=== PATIENT | male | born 1980 | race Caucasian/White ===

== ENCOUNTER → 2017-05-02 | Outpatient (CLI) | payer SELFPAY ==
[~2017-05-02] MED LIST: DARVOCET N 1001 TAB PO; HYDROCODONE BIT1 T11 PO; NEURONTIN300 MG PO; OXYCODONE HCL5 MG PO; PREVACID15 M1 PO; SERTRALINE HYDR25 MG PO; ZOFRAN4 MG PO; ZOLPIDEM TART5 MG PO
== END | disposition home or self-care (01) ==
LOC: ORTHO 00:42
DX: M25.531 Pain in right wrist (principal)

== ENCOUNTER 2017-08-14 13:22 | Emergency (ER) | payer OTHER ==
[~2017-08-14] VITALS: Ht 182.8 cm; Wt 81.6 kg
== END 2017-08-14 15:32 | disposition home or self-care (01) ==
LOC: ED 13:22
DX: J06.9 Acute upper respiratory infection, unspecified (principal); Z79.899 Other long term (current) drug therapy

== ENCOUNTER → 2017-11-12 | Outpatient (CLI) | payer OTHER | END | disposition home or self-care (01) | LOC: RAD 13:56 | DX: M51.26 Other intervertebral disc displacement, lumbar region (principal) ==

== ENCOUNTER → 2017-11-26 | Outpatient (CLI) | payer OTHER | END | disposition home or self-care (01) | LOC: MRI 14:00 | DX: M51.26 Other intervertebral disc displacement, lumbar region (principal) ==

== ENCOUNTER 2018-04-28 10:02 | Emergency (ER) | payer OTHER ==
[~2018-04-28] VITALS: Ht 180.3 cm; Wt 79.4 kg
[~2018-04-28 10:02] MED LIST changes: -OXYCODONE HCL5 MG PO; +PERCOCET 10-321 EACH PO
[2018-04-28 10:50] LABS: BASO # 0.1 10*3/uL (0.0-0.1); BASO % 0.3 % (0.0-1.0); EOS # 0.1 10*3/uL (0.0-0.4); EOS % 0.9 % (1.0-4.0); HEMATOCRIT 33.8 % (42.0-52.0); HEMOGLOBIN 11.5 g/dl (14.0-18.0); LYMPH # 1.8 10*3/uL (1.3-4.4); LYMPH % 11.5 % (27.0-41.0); MEAN CELL VOLUME 88.5 fl (80.0-94.0); MEAN CORPUSCULAR HGB 30.1 pg (27.0-31.0); MONO # 1.3 10*3/uL (0.1-1.0); MONO % 8.8 % (3.0-9.0); NEUT # 11.9 10*3/uL (2.3-7.9); NEUT % 77.9 % (47.0-73.0); PLATELET COUNT AUTOMATED 245 10*3/uL (130-400); RED BLOOD COUNT 3.82 10*6/uL (4.50-5.90); RED CELL DISTRI WIDTH 11.9 % (0-14.5); WHITE BLOOD COUNT 15.3 10*3/uL (4.8-10.8)
[2018-04-28 11:06] LABS: ALBUMIN 3.4 gm/dl (3.1-4.5); ALKALINE PHOSPHATASE 56 U/L (45-117); BUN 12 mg/dl (7-24); CHLORIDE 105 mmol/L (98-107); CREATININE 0.76 mg/dL (0.70-1.30); POTASSIUM 3.6 mmol/L (3.5-5.1); SGOT/AST 38 IU/L (3-35); SGPT/ALT 82 U/L (12-78); SODIUM 140 mmol/L (136-145)
[2018-04-28] MEDS ORDERED: LEVOFLOXACIN500 MG PO (12:04)
== END 2018-04-28 13:21 | disposition home or self-care (01) ==
LOC: ED 10:02
PROVIDERS: Nurse Practitioner Family
DX: J18.9 Pneumonia, unspecified organism (principal); Z79.899 Other long term (current) drug therapy

== ENCOUNTER 2018-04-30 18:23 | Inpatient (IN) | payer OTHER ==
[~2018-04-30] VITALS: Ht 180.3 cm; Wt 80.9 kg
--- NOTE | ~2018-04-30 | EKG ---
[place], [place] ELECTROCARDIOGRAM REPORT NAME: ANAM CHIN UNIT #: [id number] ROOM: 428 DOCTOR: CONNOR DRAFT REPORT BIRTHDATE: [birth year] [facility] Test Date: 2018-04-30 Test Time: 18:51:32 Pat Name: ANAM CHIN Department: Room: [facility] Gender: M Senior Application Programmer: DOTTIE : 1980 Requested By: DRU PERSON Order Number: [id number] Reading MD: Bienvenido Parra MD Measurements Intervals [place] Rate: 109 P: 45 CA: 136 QRS: 10 QRSD: 97 T: 29 QT: 331 QTc: 446 Interpretive Statements Sinus tachycardia Abnormal R-wave progression, early transition Electronically Signed On 05-01-2018 10:42:00 PDT by Bienvenido Parra MD CM:EKGRPT:ELECTROCARDIOGRAM REPORT [id number] DRU PERSON EPIPHANY DRAFT REPORT DRU PERSON
[~2018-04-30 18:23] MED LIST changes: +LEVOFLOXACIN500 MG PO
[2018-04-30 18:24] VITALS: BP 133/90
[2018-04-30 19:02] LABS: BASO % 0.2 % (0.0-1.0); EOS # 0.4 10*3/uL (0.0-0.4); EOS % 2.8 % (1.0-4.0); HEMOGLOBIN 10.4 g/dl (14.0-18.0); LYMPH # 1.3 10*3/uL (1.3-4.4); LYMPH % 9.7 % (27.0-41.0); MEAN CELL VOLUME 89.1 fl (80.0-94.0); MEAN CORPUSCULAR HGB 29.9 pg (27.0-31.0); MEAN CORPUSCULAR HGB CONC 33.5 g/dl (33.0-37.0); MEAN PLATELET VOLUME 9.2 fl (9.6-12.3); MONO # 1.5 10*3/uL (0.1-1.0); MONO % 10.9 % (3.0-9.0); NEUT # 10.1 10*3/uL (2.3-7.9); NEUT % 75.9 % (47.0-73.0); PLATELET COUNT AUTOMATED 282 10*3/uL (130-400); RED BLOOD COUNT 3.48 10*6/uL (4.50-5.90); RED CELL DISTRI WIDTH 11.9 % (0-14.5); WHITE BLOOD COUNT 13.3 10*3/uL (4.8-10.8)
[2018-04-30 19:18] LABS: ALBUMIN 3.2 gm/dl (3.1-4.5); ALKALINE PHOSPHATASE 64 U/L (45-117); BUN 11 mg/dl (7-24); CHLORIDE 103 mmol/L (98-107); CREATININE 0.76 mg/dL (0.70-1.30); POTASSIUM 3.8 mmol/L (3.5-5.1); SGOT/AST 27 IU/L (3-35); SODIUM 140 mmol/L (136-145); TOTAL PROTEIN 7.4 gm/dL (6.4-8.2)
[2018-04-30 19:22] LABS: SGPT/ALT 55 U/L (12-78)
[2018-04-30 19:24] LABS: TROPONIN I < 0.015 ng/ml (<0.045)
[2018-04-30 21:30] VITALS: BP 124/79
[2018-04-30 21:36] VITALS: BP 124/78
[2018-04-30] MEDS ORDERED: ATARAX,VISTARIL10 MG PO (21:46)
[2018-04-30] MEDS ORDERED: VISTARIL25 MG PO (21:49)
[2018-05-01] VITALS: BP 118/83
[2018-05-01 07:58] LABS: HEMATOCRIT 31.1 % (42.0-52.0); HEMOGLOBIN 10.1 g/dl (14.0-18.0); MEAN CORPUSCULAR HGB CONC 32.5 g/dl (33.0-37.0); MEAN PLATELET VOLUME 9.6 fl (9.6-12.3); PLATELET COUNT AUTOMATED 295 10*3/uL (130-400); RED BLOOD COUNT 3.37 10*6/uL (4.50-5.90); RED CELL DISTRI WIDTH 11.9 % (0-14.5); WHITE BLOOD COUNT 11.9 10*3/uL (4.8-10.8)
[2018-05-01 08:00] VITALS: BP 126/73
[2018-05-01 08:01] LABS: MEAN CELL VOLUME 92.3 fl (80.0-94.0)
[2018-05-01 08:02] LABS: BUN 10 mg/dl (7-24); CHLORIDE 106 mmol/L (98-107); CHOLESTEROL 145 mg/dL (<200); CREATININE 0.95 mg/dL (0.70-1.30); FREE T4 0.89 ng/dl (0.76-1.46); HDL CHOLESTEROL 39 mg/dl (40-60); LDL CHOLESTEROL 93 mg/dL (9-159); PHOSPHOROUS 2.2 mg/dL (2.5-4.9); POTASSIUM 3.7 mmol/L (3.5-5.1); SODIUM 142 mmol/L (136-145); TRIGLYCERIDES 67 mg/dl (<150); VLDL CHOLESTEROL 13 mg/dL (6-40)
[2018-05-01 08:09] LABS: THYROID STIM HORMONE (HS) 0.384 uIU/ml (0.358-4.75)
[2018-05-01 08:10] LABS: PLATELET SUFFICIENCY NORMAL (NORMAL); TOTAL CELLS COUNTED 100 #CELLS
[2018-05-01 08:11] LABS: ACT PARTIAL THROMBO TIME 28.6 SECONDS (20.8-31.5)
[2018-05-01 09:29] LABS: VITAMIN D, 25-HYDROXY 38.2 ng/mL (30-100)
[2018-05-01 12:00] VITALS: BP 122/74
[2018-05-01 16:00] VITALS: BP 125/73
[2018-05-01 20:00] VITALS: BP 127/82
[2018-05-02 00:17] VITALS: BP 121/83
[2018-05-02 06:52] LABS: HEMATOCRIT 29.4 % (42.0-52.0); HEMOGLOBIN 9.8 g/dl (14.0-18.0); MEAN CELL VOLUME 89.6 fl (80.0-94.0); MEAN CORPUSCULAR HGB 29.9 pg (27.0-31.0); MEAN CORPUSCULAR HGB CONC 33.3 g/dl (33.0-37.0); MEAN PLATELET VOLUME 9.8 fl (9.6-12.3); PLATELET COUNT AUTOMATED 356 10*3/uL (130-400); RED BLOOD COUNT 3.28 10*6/uL (4.50-5.90); RED CELL DISTRI WIDTH 12.1 % (0-14.5); WHITE BLOOD COUNT 21.8 10*3/uL (4.8-10.8)
[2018-05-02 07:04] LABS: ALKALINE PHOSPHATASE 70 U/L (45-117); BUN 11 mg/dl (7-24); CHLORIDE 106 mmol/L (98-107); CREATININE 0.65 mg/dL (0.70-1.30); POTASSIUM 4.3 mmol/L (3.5-5.1); SGOT/AST 32 IU/L (3-35); SGPT/ALT 61 U/L (12-78); SODIUM 141 mmol/L (136-145); TOTAL PROTEIN 6.8 gm/dL (6.4-8.2)
[2018-05-02 07:42] LABS: PLATELET SUFFICIENCY NORMAL (NORMAL); TOTAL CELLS COUNTED 100 #CELLS
[2018-05-02 08:00] VITALS: BP 117/74
[2018-05-02 12:00] VITALS: BP 115/77
[2018-05-02 16:00] VITALS: BP 111/76
[2018-05-02 20:00] VITALS: BP 118/90
[2018-05-03 09:27] LABS: BASO # 0.1 10*3/uL (0.0-0.1); BASO % 0.5 % (0.0-1.0); EOS # 0.2 10*3/uL (0.0-0.4); EOS % 1.4 % (1.0-4.0); HEMATOCRIT 32.3 % (42.0-52.0); HEMOGLOBIN 10.8 g/dl (14.0-18.0); LYMPH # 2.4 10*3/uL (1.3-4.4); LYMPH % 18.2 % (27.0-41.0); MEAN CELL VOLUME 88.5 fl (80.0-94.0); MEAN CORPUSCULAR HGB 29.6 pg (27.0-31.0); MEAN CORPUSCULAR HGB CONC 33.4 g/dl (33.0-37.0); MEAN PLATELET VOLUME 8.8 fl (9.6-12.3); MONO # 1.2 10*3/uL (0.1-1.0); MONO % 8.7 % (3.0-9.0); NEUT # 9.1 10*3/uL (2.3-7.9); NEUT % 69.4 % (47.0-73.0); PLATELET COUNT AUTOMATED 397 10*3/uL (130-400); RED BLOOD COUNT 3.65 10*6/uL (4.50-5.90); WHITE BLOOD COUNT 13.2 10*3/uL (4.8-10.8)
[2018-05-03 09:41] LABS: BUN 14 mg/dl (7-24); CHLORIDE 105 mmol/L (98-107); CREATININE 0.79 mg/dL (0.70-1.30); SODIUM 142 mmol/L (136-145)
[2018-05-03] MEDS ORDERED: VIBRAMYCIN100 MG PO (12:45)
[2018-05-03] MEDS ORDERED: ZOFRAN ODT4 MG SL (12:45)
== END 2018-05-03 13:15 | disposition home or self-care (01) | DRG 871 ==
LOC: ED 18:23 → EDHOLD 20:30 → 4E 20:30
PROVIDERS: Internal Medicine; Nurse Practitioner Family
DX: A41.9 Sepsis, unspecified organism (principal); J18.1 Lobar pneumonia, unspecified organism; E44.1 Mild protein-calorie malnutrition; F41.9 Anxiety disorder, unspecified; G89.29 Other chronic pain; D64.9 Anemia, unspecified; M54.5 Low back pain; K29.50 Unspecified chronic gastritis without bleeding; G47.00 Insomnia, unspecified; E83.39 Other disorders of phosphorus metabolism; Z82.49 Family history of ischemic heart disease and other diseases of the circulatory system; Z82.3 Family history of stroke; Z79.899 Other long term (current) drug therapy; Z68.24 Body mass index [BMI] 24.0-24.9, adult

== ENCOUNTER → 2018-07-16 | Outpatient (CLI) | payer OTHER ==
[~2018-07-16] MED LIST changes: +ATARAX,VISTARIL10 MG PO; +VIBRAMYCIN100 MG PO; +VISTARIL25 MG PO; +ZOFRAN ODT4 MG SL
== END | disposition home or self-care (01) ==
LOC: RAD 16:27
DX: R05 Cough (principal); R06.02 Shortness of breath; R09.89 Other specified symptoms and signs involving the circulatory and respiratory systems

== ENCOUNTER → 2019-01-16 | Outpatient (CLI) | payer OTHER ==
[~2019-01-16] MED LIST changes: +PREDNISONE50 MG PO
[2019-01-16 11:15] LABS: URINE AMPHETAMINES < 1000 (1000ng/ml); URINE BARBITURATES < 200 (200ng/ml); URINE BENZODIAZEPINES < 200 (200ng/ml); URINE CANNABINOIDS (THC) < 50 (50ng/ml); URINE COCAINE < 300 (300ng/ml); URINE METHADONE < 300 (300ng/ml); URINE OPIATES > 300 (300ng/ml)
[2019-01-16 11:18] LABS: URINE PHENCYCLIDINE < 25 (25ng/ml)
[2019-01-21 18:09] LABS: OXYCODONE Positive (.); OXYCODONE (GC/MS) 2960 ng/mL (Cutoff=100); OXYCODONE - OXYMORPHONE Positive (Cutoff=100); OXYMORPHONE Positive (.); OXYMORPHONE (GC/MS) >3000 ng/mL (Cutoff=100)
== END | disposition home or self-care (01) ==
LOC: LAB 10:33
PROVIDERS: Family Medicine
DX: M54.16 Radiculopathy, lumbar region (principal)

== ENCOUNTER 2019-04-04 07:11 | Emergency (ER) | payer OTHER ==
[~2019-04-04] VITALS: Ht 180.3 cm; Wt 86.6 kg
[~2019-04-04 07:11] MED LIST changes: -PREDNISONE50 MG PO
[2019-04-04 07:55] LABS: BASO # 0.1 10*3/uL (0.0-0.1); BASO % 0.9 % (0.0-1.0); EOS # 0.4 10*3/uL (0.0-0.4); EOS % 5.3 % (1.0-4.0); HEMATOCRIT 39.8 % (42.0-52.0); HEMOGLOBIN 13.5 g/dl (14.0-18.0); LYMPH # 2.3 10*3/uL (1.3-4.4); LYMPH % 32.9 % (27.0-41.0); MEAN CELL VOLUME 87.3 fl (80.0-94.0); MEAN CORPUSCULAR HGB 29.6 pg (27.0-31.0); MEAN CORPUSCULAR HGB CONC 33.9 g/dl (33.0-37.0); MEAN PLATELET VOLUME 9.1 fl (9.6-12.3); MONO # 0.8 10*3/uL (0.1-1.0); MONO % 10.7 % (3.0-9.0); NEUT # 3.5 10*3/uL (2.3-7.9); NEUT % 50.1 % (47.0-73.0); PLATELET COUNT AUTOMATED 332 10*3/uL (130-400); RED BLOOD COUNT 4.56 10*6/uL (4.50-5.90); RED CELL DISTRI WIDTH 11.9 % (0-14.5)
[2019-04-04 08:09] LABS: ALBUMIN 3.6 gm/dl (3.1-4.5); ALKALINE PHOSPHATASE 65 U/L (45-117); BUN 14 mg/dl (7-24); CHLORIDE 104 mmol/L (98-107); CREATININE 0.97 mg/dL (0.70-1.30); SGOT/AST 23 IU/L (3-35); SODIUM 140 mmol/L (136-145); TOTAL PROTEIN 7.4 gm/dL (6.4-8.2); URIC ACID 4.9 mg/dL (3.5-7.2)
[2019-04-04 08:33] LABS: SGPT/ALT 32 U/L (12-78)
[2019-04-04] MEDS ORDERED: PREDNISONE50 MG PO (09:53)
== END 2019-04-04 10:00 | disposition home or self-care (01) ==
LOC: ED 07:11
PROVIDERS: Emergency Medicine
DX: M65.872 Other synovitis and tenosynovitis, left ankle and foot (principal); M65.871 Other synovitis and tenosynovitis, right ankle and foot; G89.29 Other chronic pain; Z79.2 Long term (current) use of antibiotics; Z79.899 Other long term (current) drug therapy; Z87.891 Personal history of nicotine dependence

== ENCOUNTER → 2019-08-07 | Outpatient (CLI) | payer OTHER ==
[~2019-08-07] MED LIST changes: +PREDNISONE50 MG PO
== END | disposition home or self-care (01) ==
LOC: RESCLI 01:33
DX: G62.9 Polyneuropathy, unspecified (principal); K21.9 Gastro-esophageal reflux disease without esophagitis; R60.9 Edema, unspecified

== ENCOUNTER 2019-08-31 16:01 | Emergency (ER) | payer OTHER ==
[~2019-08-31] VITALS: Ht 180.3 cm; Wt 88.5 kg
== END 2019-08-31 18:23 | disposition home or self-care (01) ==
LOC: ED 16:01
DX: B34.9 Viral infection, unspecified (principal); J02.8 Acute pharyngitis due to other specified organisms; R11.0 Nausea; R68.83 Chills (without fever); K21.9 Gastro-esophageal reflux disease without esophagitis; Z87.891 Personal history of nicotine dependence; Z79.899 Other long term (current) drug therapy

== ENCOUNTER → 2019-09-30 | Outpatient (CLI) | payer OTHER ==
[2019-09-30 19:49] LABS: BASO # 0.1 10*3/uL (0.0-0.1); BASO % 0.7 % (0.0-1.0); BILIRUBIN NEGATIVE (NEGATIVE); CLARITY CLEAR (CLEAR); COLOR YELLOW (YELLOW); EOS # 0.4 10*3/uL (0.0-0.4); EOS % 4.7 % (1.0-4.0); GLUCOSE NEGATIVE (NEGATIVE); HEMATOCRIT 38.1 % (42.0-52.0); HEMOGLOBIN 12.8 g/dl (14.0-18.0); KETONE NEGATIVE (NEGATIVE); LYMPH # 2.7 10*3/uL (1.3-4.4); MEAN CELL VOLUME 84.9 fl (80.0-94.0); MEAN CORPUSCULAR HGB 28.5 pg (27.0-31.0); MEAN CORPUSCULAR HGB CONC 33.6 g/dl (33.0-37.0); MEAN PLATELET VOLUME 9.3 fl (9.6-12.3); MONO # 0.8 10*3/uL (0.1-1.0); MONO % 11.1 % (3.0-9.0); NEUT # 3.5 10*3/uL (2.3-7.9); NEUT % 47.4 % (47.0-73.0); PLATELET COUNT AUTOMATED 309 10*3/uL (130-400); RED BLOOD COUNT 4.49 10*6/uL (4.50-5.90); WHITE BLOOD COUNT 7.4 10*3/uL (4.8-10.8)
[2019-09-30 19:50] LABS: BLOOD NEGATIVE (NEGATIVE); LEUKO ESTERASE NEGATIVE (NEGATIVE); NITRITE NEGATIVE (NEGATIVE); SPECIFIC GRAVITY 1.015 (1.005-1.030); UROBILINOGEN 0.2 E.U./dl (0.2-1.0)
[2019-09-30 19:56] LABS: BACTERIA TRACE; EPITHELIAL CELLS 0-2; RBC 0-2 rbc/hpf (0-2); WBC 0-2 wbc/hpf (0-5)
[2019-09-30 20:19] LABS: ALBUMIN 3.8 gm/dl (3.1-4.5); ALKALINE PHOSPHATASE 64 U/L (45-117); BUN 11 mg/dl (7-24); CHLORIDE 103 mmol/L (98-107); CREATININE 0.81 mg/dL (0.70-1.30); POTASSIUM 3.5 mmol/L (3.5-5.1); SGOT/AST 23 IU/L (3-35); SGPT/ALT 29 U/L (12-78); SODIUM 138 mmol/L (136-145); TOTAL PROTEIN 7.7 gm/dL (6.4-8.2)
== END | disposition home or self-care (01) ==
LOC: LAB 18:57
PROVIDERS: Internal Medicine
DX: R53.83 Other fatigue (principal); R05 Cough; R50.9 Fever, unspecified; R60.0 Localized edema

== ENCOUNTER → 2019-10-03 | Outpatient (CLI) | payer OTHER | END | disposition home or self-care (01) | LOC: RESCLI 02:34 | DX: G56.01 Carpal tunnel syndrome, right upper limb (principal); R09.89 Other specified symptoms and signs involving the circulatory and respiratory systems; R60.9 Edema, unspecified ==

== ENCOUNTER 2019-10-05 15:05 | Emergency (ER) | payer OTHER ==
[~2019-10-05] VITALS: Ht 121 cm; Wt 91.6 kg
== END 2019-10-05 19:13 | disposition home or self-care (01) ==
LOC: ED 15:05
DX: R05 Cough (principal); R06.02 Shortness of breath; R50.9 Fever, unspecified; K21.9 Gastro-esophageal reflux disease without esophagitis; F41.9 Anxiety disorder, unspecified; Z79.899 Other long term (current) drug therapy; Z79.2 Long term (current) use of antibiotics

== ENCOUNTER → 2019-10-08 | Outpatient (CLI) | payer OTHER ==
[2019-10-08 19:27] LABS: ALBUMIN 3.8 gm/dl (3.1-4.5); ALKALINE PHOSPHATASE 69 U/L (45-117); BILIRUBIN, DIRECT < 0.1 mg/dL (0.0-0.2); SGOT/AST 31 IU/L (3-35)
[2019-10-08 19:28] LABS: B-hCG (QUALITATIVE) NEGATIVE
[2019-10-08 19:44] LABS: TOTAL PROTEIN 7.8 gm/dL (6.4-8.2)
[2019-10-08 19:45] LABS: SGPT/ALT 32 U/L (12-78)
[2019-10-09 07:06] LABS: HEPATITIS B SURFACE AG Negative (Negative)
[2019-10-09 14:08] LABS: ANTI-DSDNA ANTIBODIES <1 IU/mL (0-9); ANTI-RNP ANTIBODIES <0.2 AI (0.0-0.9); ANTICHROMATIN ANTIBODIES <0.2 AI (0.0-0.9); ANTISCLERODERMA-70 AB <0.2 AI (0.0-0.9); SJOGREN ANTI-SS-A <0.2 AI (0.0-0.9); SJOREN AB, ANTI-SS-B <0.2 AI (0.0-0.9)
== END | disposition home or self-care (01) ==
LOC: LAB 17:56
PROVIDERS: Internal Medicine Nephrology
DX: Z01.89 Encounter for other specified special examinations (principal); Z11.3 Encounter for screening for infections with a predominantly sexual mode of transmission; F11.20 Opioid dependence, uncomplicated; Z20.6 Contact with and (suspected) exposure to human immunodeficiency virus [HIV]; Z20.828 Contact with and (suspected) exposure to other viral communicable diseases; Z79.899 Other long term (current) drug therapy

== ENCOUNTER → 2019-10-17 | Outpatient (CLI) | payer OTHER | END | disposition home or self-care (01) | LOC: CT 13:00 | DX: G62.9 Polyneuropathy, unspecified (principal); R60.9 Edema, unspecified; J84.9 Interstitial pulmonary disease, unspecified ==

== ENCOUNTER → 2019-10-20 | Outpatient (CLI) | payer OTHER | END | disposition home or self-care (01) | LOC: CARD 11:30 | DX: R09.89 Other specified symptoms and signs involving the circulatory and respiratory systems (principal) ==

== ENCOUNTER → 2019-10-24 | Outpatient (CLI) | payer OTHER ==
[2019-10-25 07:04] LABS: TOXOPLASMA GONDII IGM 4.8 AU/mL (0.0-7.9)
== END | disposition home or self-care (01) ==
LOC: LAB 13:47
PROVIDERS: Internal Medicine
DX: J84.9 Interstitial pulmonary disease, unspecified (principal)

== ENCOUNTER → 2020-04-01 | Outpatient (CLI) | payer OTHER | END | disposition home or self-care (01) | LOC: COVID19 02:49 | PROVIDERS: ATTEND Hospitalist | DX: Z20.828 Contact with and (suspected) exposure to other viral communicable diseases (principal) ==

== ENCOUNTER 2020-05-10 12:10 | Emergency (ER) | payer OTHER ==
[~2020-05-10] VITALS: Ht 180.3 cm; Wt 86.2 kg
[2020-05-10] MEDS ORDERED: SUBOXONE 8 MG-1 EACH SL (12:20)
[2020-05-10 12:39] LABS: BASO # 0.1 10*3/uL (0.0-0.1); EOS # 0.2 10*3/uL (0.0-0.4); EOS % 3.3 % (1.0-4.0); HEMATOCRIT 39.3 % (42.0-52.0); LYMPH # 3.1 10*3/uL (1.3-4.4); LYMPH % 42.5 % (27.0-41.0); MEAN CELL VOLUME 84.3 fl (80.0-94.0); MEAN CORPUSCULAR HGB 27.9 pg (27.0-31.0); MEAN CORPUSCULAR HGB CONC 33.1 g/dl (33.0-37.0); MEAN PLATELET VOLUME 9.1 fl (9.6-12.3); MONO % 13.4 % (3.0-9.0); NEUT # 2.9 10*3/uL (2.3-7.9); NEUT % 39.7 % (47.0-73.0); PLATELET COUNT AUTOMATED 346 10*3/uL (130-400); RED BLOOD COUNT 4.66 10*6/uL (4.50-5.90); RED CELL DISTRI WIDTH 11.9 % (0-14.5); WHITE BLOOD COUNT 7.2 10*3/uL (4.8-10.8)
[2020-05-10 12:53] LABS: ALBUMIN 3.6 gm/dl (3.1-4.5); ALKALINE PHOSPHATASE 59 U/L (45-117); BUN 11 mg/dl (7-24); CHLORIDE 106 mmol/L (98-107); CREATININE 1.02 mg/dL (0.70-1.30); POTASSIUM 3.5 mmol/L (3.5-5.1); SGOT/AST 29 IU/L (3-35); SGPT/ALT 31 U/L (12-78); SODIUM 140 mmol/L (136-145); TOTAL PROTEIN 7.1 gm/dL (6.4-8.2)
[2020-05-10 13:43] LABS: BILIRUBIN Negative (Negative); BLOOD 1+ (Negative); CLARITY Cloudy (Clear); COLOR Yellow (Yellow); GLUCOSE Negative (Negative); KETONE Negative (Negative); LEUKO ESTERASE Negative (Negative); NITRITE Negative (Negative); PH 7.5 (4.5-8.0)
[2020-05-10 13:57] LABS: RBC 21-30 rbc/hpf (0-2)
[2020-05-10 13:58] LABS: BACTERIA 2+
[2020-05-10] MEDS ORDERED: FLOMAX0.4 MG PO (15:14)
[2020-05-10] MEDS ORDERED: CIPRO500 MG PO (15:14)
[2020-05-10] MEDS ORDERED: KETOROLAC10 MG PO (15:14)
== END 2020-05-10 15:39 | disposition home or self-care (01) ==
LOC: ED 12:10
PROVIDERS: Physician Assistant
DX: N13.2 Hydronephrosis with renal and ureteral calculous obstruction (principal); Z79.899 Other long term (current) drug therapy; Z87.891 Personal history of nicotine dependence

== ENCOUNTER → 2020-08-23 | Outpatient (CLI) | payer OTHER ==
[~2020-08-23] MED LIST changes: +CIPRO500 MG PO; +FLOMAX0.4 MG PO; +KETOROLAC10 MG PO; +SUBOXONE 8 MG-1 EACH SL
== END | disposition home or self-care (01) ==
LOC: RESCLI 09:27
PROVIDERS: ATTEND Internal Medicine Nephrology
DX: F41.9 Anxiety disorder, unspecified (principal); F11.21 Opioid dependence, in remission; G47.00 Insomnia, unspecified; Z79.899 Other long term (current) drug therapy

== ENCOUNTER → 2020-12-08 | Outpatient (CLI) | payer OTHER | END | disposition home or self-care (01) | LOC: US 18:35 | PROVIDERS: ATTEND Podiatrist Foot & Ankle Surgery | DX: R60.0 Localized edema (principal) ==

== ENCOUNTER → 2021-02-07 | Outpatient (CLI) | payer OTHER ==
[2021-02-07 15:40] LABS: BASO # 0.1 10*3/uL (0.0-0.1); BASO % 0.7 % (0.0-1.0); EOS # 0.3 10*3/uL (0.0-0.4); EOS % 3.7 % (1.0-4.0); HEMATOCRIT 35.7 % (42.0-52.0); LYMPH # 2.4 10*3/uL (1.3-4.4); LYMPH % 31.6 % (27.0-41.0); MEAN CORPUSCULAR HGB 28.2 pg (27.0-31.0); MEAN CORPUSCULAR HGB CONC 32.8 g/dl (33.0-37.0); MEAN PLATELET VOLUME 9.2 fl (9.6-12.3); MONO # 0.7 10*3/uL (0.1-1.0); MONO % 9.5 % (3.0-9.0); NEUT # 4.1 10*3/uL (2.3-7.9); NEUT % 54.2 % (47.0-73.0); PLATELET COUNT AUTOMATED 309 10*3/uL (130-400); RED BLOOD COUNT 4.15 10*6/uL (4.50-5.90); RED CELL DISTRI WIDTH 12.2 % (0-14.5); WHITE BLOOD COUNT 7.5 10*3/uL (4.8-10.8)
[2021-02-07 16:10] LABS: ALBUMIN 3.6 gm/dl (3.1-4.5); BUN 15 mg/dl (7-24); CHLORIDE 105 mmol/L (98-107); CREATININE 0.73 mg/dL (0.70-1.30); POTASSIUM 4.1 mmol/L (3.5-5.1); SGOT/AST 21 IU/L (3-35); SGPT/ALT 30 U/L (12-78); SODIUM 136 mmol/L (136-145); TOTAL PROTEIN 7.4 gm/dL (6.4-8.2)
[2021-02-07 16:13] LABS: ALKALINE PHOSPHATASE 73 U/L (45-117)
== END | disposition home or self-care (01) ==
LOC: RESCLI 00:48
PROVIDERS: Internal Medicine; ATTEND Internal Medicine Nephrology
DX: Z01.818 Encounter for other preprocedural examination (principal); G47.00 Insomnia, unspecified; F41.9 Anxiety disorder, unspecified; G89.29 Other chronic pain; M15.9 Polyosteoarthritis, unspecified; G47.31 Primary central sleep apnea; J45.909 Unspecified asthma, uncomplicated; S96.91 Strain of unspecified muscle and tendon at ankle and foot level; U07.0 Vaping-related disorder; Z87.891 Personal history of nicotine dependence; Z79.899 Other long term (current) drug therapy

== ENCOUNTER → 2021-04-27 | Outpatient (CLI) | payer OTHER | END | disposition home or self-care (01) | LOC: US 17:16 | PROVIDERS: ATTEND Podiatrist Foot & Ankle Surgery | DX: R60.0 Localized edema (principal) ==

== ENCOUNTER 2021-07-06 13:59 | Emergency (ER) | payer OTHER ==
[~2021-07-06] VITALS: Ht 180.3 cm; Wt 81.6 kg
[2021-07-06 15:19] LABS: HEMATOCRIT 37.5 % (42.0-52.0); MEAN CELL VOLUME 86.8 fl (80.0-94.0); MEAN CORPUSCULAR HGB 28.7 pg (27.0-31.0); MEAN CORPUSCULAR HGB CONC 33.1 g/dl (33.0-37.0); MEAN PLATELET VOLUME 9.5 fl (9.6-12.3); PLATELET COUNT AUTOMATED 315 10*3/uL (130-400); RED BLOOD COUNT 4.32 10*6/uL (4.50-5.90); RED CELL DISTRI WIDTH 12.3 % (0-14.5); WHITE BLOOD COUNT 25.1 10*3/uL (4.8-10.8)
[2021-07-06 15:39] LABS: INTERNATIONAL NORM RATIO 1.1 (2.0-3.5)
[2021-07-06 15:44] LABS: ALBUMIN 3.6 gm/dl (3.1-4.5); ALKALINE PHOSPHATASE 77 U/L (45-117); BUN 17 mg/dl (7-24); CHLORIDE 101 mmol/L (98-107); CREATININE 0.95 mg/dL (0.70-1.30); LIPASE 36 U/L (73-393); POTASSIUM 3.5 mmol/L (3.5-5.1); SGOT/AST 22 IU/L (3-35); SGPT/ALT 29 U/L (12-78); SODIUM 136 mmol/L (136-145); TOTAL PROTEIN 7.6 gm/dL (6.4-8.2)
[2021-07-06 16:07] LABS: ATYPICAL LYMPHS 1 % (0-0); PLATELET SUFFICIENCY NORMAL (NORMAL); TOTAL CELLS COUNTED 100 #CELLS
[2021-07-06 16:08] LABS: ACANTHOCYTES FEW
[2021-07-06 16:38] LABS: BILIRUBIN Negative (Negative); BLOOD Negative (Negative); CLARITY Clear (Clear); COLOR Yellow (Yellow); GLUCOSE Negative (Negative); KETONE Negative (Negative); LEUKO ESTERASE Negative (Negative); NITRITE Negative (Negative); PH 7.5 (4.5-8.0)
[2021-07-06 17:31] LABS: BACTERIA TRACE; EPITHELIAL CELLS 0-2; WBC 0-2 wbc/hpf (0-5)
[2021-07-06] MEDS ORDERED: LEVOFLOXACIN750 M2 PO (21:36)
== END 2021-07-06 21:44 ==
LOC: ED 13:59
PROVIDERS: Emergency Medicine
DX: D72.829 Elevated white blood cell count, unspecified (principal); R91.8 Other nonspecific abnormal finding of lung field; Z79.899 Other long term (current) drug therapy; Z87.891 Personal history of nicotine dependence

== ENCOUNTER → 2021-08-10 | Outpatient (CLI) | payer OTHER ==
[~2021-08-10] MED LIST changes: +LEVOFLOXACIN750 M2 PO
[2021-08-10 09:48] LABS: BASO # 0.1 10*3/uL (0.0-0.1); EOS # 0.2 10*3/uL (0.0-0.4); EOS % 4.5 % (1.0-4.0); HEMATOCRIT 37.7 % (42.0-52.0); LYMPH # 1.7 10*3/uL (1.3-4.4); LYMPH % 33.8 % (27.0-41.0); MEAN CELL VOLUME 85.1 fl (80.0-94.0); MEAN CORPUSCULAR HGB 28.7 pg (27.0-31.0); MEAN CORPUSCULAR HGB CONC 33.7 g/dl (33.0-37.0); MEAN PLATELET VOLUME 9.1 fl (9.6-12.3); MONO # 0.7 10*3/uL (0.1-1.0); MONO % 12.8 % (3.0-9.0); NEUT # 2.4 10*3/uL (2.3-7.9); NEUT % 47.7 % (47.0-73.0); PLATELET COUNT AUTOMATED 271 10*3/uL (130-400); RED BLOOD COUNT 4.43 10*6/uL (4.50-5.90); RED CELL DISTRI WIDTH 12.3 % (0-14.5); WHITE BLOOD COUNT 5.1 10*3/uL (4.8-10.8)
[2021-08-10 10:06] LABS: ALBUMIN 3.6 gm/dl (3.1-4.5); ALKALINE PHOSPHATASE 68 U/L (45-117); BUN 11 mg/dl (7-24); CHLORIDE 103 mmol/L (98-107); CREATININE 0.78 mg/dL (0.70-1.30); POTASSIUM 3.9 mmol/L (3.5-5.1); SGOT/AST 20 IU/L (3-35); SGPT/ALT 27 U/L (12-78); SODIUM 139 mmol/L (136-145); TOTAL PROTEIN 7.3 gm/dL (6.4-8.2)
== END | disposition home or self-care (01) ==
LOC: LAB 06:45 → RESCLI 06:45
PROVIDERS: Internal Medicine; ATTEND Internal Medicine
DX: Z01.818 Encounter for other preprocedural examination (principal); R94.31 Abnormal electrocardiogram [ECG] [EKG]